=== PATIENT | male | born 1980 | race Caucasian/White ===

== ENCOUNTER 2020-08-07 13:53 | Emergency (ER) | payer MEDICAID, SELFPAY ==
[2020-08-07 13:58] VITALS: BP 145/92; PULSE 85; RESP 16; TEMP 37.2; O2SAT 98
--- NOTE | 2020-08-07 14:20 | ED.EXTPRO ---
HPI - Extremity Problem General Chief complaint: Extremity Problem,Nontraumatic Stated complaint: L SHOULDER PAIN Source: patient and RN notes reviewed Limitations: no limitations History of Present Illness HPI Narrative: The patient, is a left-handed sheltered workshop worker, presents with left shoulder pain. Patient states he has a couple day history of left shoulder pain that is mild to moderate, worse with motion, better at rest located in the anterior axilla. No neck pain, numbness, gait changes, significant weakness but he has definite decreased range of motion. He has had prior orthopedic/hand surgery for finger contracture, and ulnar nerve disposition on the same arm. Related Data Home Medications Medication Instructions Recorded Confirmed omeprazole 08/07/20 Allergies Allergy/AdvReac Type Severity Reaction Status Date / Time No Known Allergies Allergy Verified 10/22/12 14:19 Review of Systems Review of Systems: Narrative: The patient has been informed that they may have pre-hypertension or Hypertension based on a BP reading in the department. I recommend that the patient call the primary care provider listed on their discharge instructions or a physician of their choice this week to arrange follow up for further evaluation of possible pre-hypertension or Hypertension General/Constitutional: No weight loss,fever Eyes: N0: Redness,discharge Ears/Nose/Throat: No: Epistaxis,ear discharge Respiratory: Denies: Hemoptysis Gastrointestinal: No Vomiting, Bleeding-rectal Skin: No Lumps, eruption Neurologic: No Focal Weakness,Sz Hematologic: Denies: Petechiae/Purpura Psychiatric: No: Suicida ideationl All Other Systems: Reviewed and Negative PMFSH Comments At time of signature, agree with nursing past medical, surgical, social and family history. There is no relevant family history pertinent to the presenting complaint Exam Narrative: Exam Narrative: General Appearance: Well appearing, Well nourished, No distress EYE: PERRLA, EOMI, Conjunctiva clear Mouth/Throat: Normal appearing, Normal lips Neck: Supple Respiratory: Airway patent, No respiratory distress MS-shoulder: Normal strength (mostly intact, limited flexion/extension,IR/ER by pain), Tenderness prox. medial humerus, with mod decreased ROM), no swelling, Other-negative drop arm, positive Neer, Skin: Fair Jobst's test, surface warm, Dry, Normal color Neurological: A&O x3, Speech clear, CN II-XII intact Psychiatric: Normal mood, Normal affect Course Vital Signs Vital signs: Vital Signs Temperature 99.0 F 08/07/20 13:58 Pulse Rate 85 08/07/20 13:58 Respiratory Rate 16 08/07/20 13:58 Blood Pressure 145/92 H 08/07/20 13:58 Pulse Oximetry 98 08/07/20 13:58 Temperature 99.0 F 08/07/20 13:58 Pulse Rate 85 08/07/20 13:58 Respiratory Rate 16 08/07/20 13:58 Blood Pressure 145/92 H 08/07/20 13:58 Pulse Oximetry 98 08/07/20 13:58 Discharge Plan Discharge Clinical Impression: Tendonitis of shoulder, left, Osteoarthropathy Patient Disposition: Home, Self-Care Condition: Stable Instructions: Rotator Cuff Tendinitis (ED) Prescriptions: New prednisone 20 mg tablet 60 mg PO DAILY Qty: 15 RF: 0 acetaminophen-codeine 300-30 mg tablet 1 tablet PO HS PRN (Reason: pain) Qty: 10 RF: 0 tramadol 50 mg tablet 50 mg PO Q6H PRN (Reason: pain) Qty: 15 RF: 1 No Action omeprazole RF: 0 Follow-up/Referrals: PHYSICIAN,FILM TOUCH UP INSPECTOR [Primary Care Provider] -
== END 2020-08-07 14:32 | disposition home or self-care (01) ==
PROVIDERS: Emergency Provider Emergency Medicine
DX: M25.512 Pain in left shoulder (principal); M77.8 Other enthesopathies, not elsewhere classified; M19.012 Primary osteoarthritis, left shoulder
CPT/HCPCS: 99203; G0463

== ENCOUNTER 2021-10-06 15:22 | Emergency (ER) | payer OTHER, SELFPAY ==
--- NOTE | ~2021-10-06 | XR_ITS ---
EXAMINATION: XR chest 2V Exam Date/Time: 10/06/2021 16:10 CDT CLINICAL HISTORY: mid CHEST PRESSURE x 3 days; non smoker;hx of hiatal hernia Comparison: None available RESULT: Lines, tubes, and devices: None. Lungs and pleura: Clear. Cardiomediastinal silhouette: Normal cardiomediastinal silhouette. Other: No acute osseous or upper abdominal finding. IMPRESSION: No acute cardiopulmonary process. Reviewed, dictated and finalized at location [facility].
[2021-10-06 15:30] VITALS: BP 131/77; PULSE 73; RESP 12; TEMP 36.6; O2SAT 99
--- NOTE | 2021-10-06 16:07 | ECG_ITS ---
Measurements Intervals [place] Rate: 67 P: 37 NV: 172 QRS: -45 QRSD: 109 T: 26 QT: 378 QTc: 401 Interpretive Statements SINUS RHYTHM LEFT ANTERIOR FASCICULAR BLOCK [QRS AXIS <= -45, QR IN I, RS IN II] INFERIOR MYOCARDIAL INFARCTION [40+ ms Q WAVE AND/OR ST/T ABNORMALITY IN II/aVF], PROBABLY OLD ABNORMAL ECG NO PREVIOUS ECG AVAILABLE FOR COMPARISON Electronically Signed On 10-07-2021 13:55:13 CDT by Yahir Aleman M.D.
--- NOTE | 2021-10-06 16:09 | ED.GENADULT ---
HPI - General Adult General Chief complaint: Chest Pain Stated complaint: chest pressure Source: patient Mode of arrival: ambulatory Limitations: no limitations History of Present Illness HPI narrative: Patient presents for evaluation of chest pressure. He indicates that the night of last he experienced a pain shooting from his chest to his back. His significant other works for cardiology and he was able to get an appt with them on Thursday morning. He had an ECHO that was normal. He has CTA coronaries scheduled for tomorrow. He has a stress test planned for this coming week. He had a calcium CT in May 2021 with score of 1. He had intermittent pain Thursday through Thursday night. He states that pain was quite sharp. Today he has experienced a new type of pain that he describes as a pressure pushing out through the chest as opposed to the pain shooting into his back last week. He had periods of shortness of breath that he attributed to severity of the pain. He denies any cough or leg swelling. No underlying hx of HTN, hyperlipidemia or DM. He does not smoke. His father had CAD s/p stent placement. He has a hx of GERD and takes omeprazole 40mg PO BID. He also had a christina fundoplication back in 2017. He does drink two beer six days per week. He states his pain has been occurring 2-3 times per day. Certain movements including leaning forward and swallowing seem to make his symptoms worse. He has tried NSAIDs, tizanidine and tramadol which seemed to reduce the frequency with which he was experiencing pain. Related Data Home Medications Medication Instructions Recorded Confirmed atorvastatin 10 mg PO DAILY 10/06/21 10/06/21 losartan 25 mg PO DAILY 10/06/21 10/06/21 metoprolol succinate 100 mg PO DAILY 10/06/21 10/06/21 omeprazole 40 mg PO DAILY 10/06/21 10/06/21 sildenafil 100 mg PO PRN PRN 10/06/21 10/06/21 Allergies Allergy/AdvReac Type Severity Reaction Status Date / Time No Known Allergies Allergy Verified 10/06/21 15:33 Review of Systems Review of Systems: CONSTITUTIONAL: Denies fever, chills, or sweats. EYES: Denies visual changes, redness, or discharge. ENT: Denies rhinorrhea, congestion, sore throat, or otalgia. CARDIOVASCULAR: Reports chest pain. Denies palpitations, or edema. RESPIRATORY: Denies cough or dyspnea. GASTROINTESTINAL: Denies abdominal pain, nausea, vomiting, or diarrhea. GENITOURINARY: Denies dysuria or hematuria. SKIN: Denies rash or itching. MUSCULOSKELETAL: Denies back pain, joint pain, or myalgia. NEUROLOGIC: Denies headache, numbness, dizziness, or weakness. PSYCHIATRIC: Denies anxiety or depression. [facility] Past Medical History Medical History (Updated 10/06/21 @ 17:11 by SETH Arevalo, ELSA) Adhesive capsulitis of left shoulder Arthritis GERD (gastroesophageal reflux disease) Surgical History Surgical History History of abdominal surgery History of Christina fundoplication Status post repair of nerve per demo sheet pt stated nerve relocation Family History Family History Father Heart disease Other Adenocarcinoma Social History Social History Additional smoking assessment comments: former smoker 2 packs a day for 5 years Alcohol intake: current Drinks per week: 12 Alcohol use details: 2 beers per day Living arrangements: with family Additional occupation/education comments: self employed Gender identity (if verbalized by the patient): Male Sexual Orientation (if Verbalized by the Patient): Straight or Heterosexual Spiritual care concerns: No Exam Narrative: GENERAL: Well-appearing, well-nourished, and in no acute distress. HEAD: Normocephalic, atraumatic. EYES: PERRLA and EOMI. ENT: Nares clear, no rhinorrhea or epistaxis. Mucous membranes mois
--- NOTE | 2021-10-06 18:09 | PC.NURSE ---
1630 awaiting chest xray reports.
--- NOTE | 2021-10-06 18:09 | PC.NURSE ---
1700 CXR not read as yet, patient is sitting in chair with at side.
== END 2021-10-06 17:25 | disposition home or self-care (01) ==
PROVIDERS: Emergency Provider Nurse Practitioner; PCP Internal Medicine
DX: R07.89 Other chest pain (principal); K21.9 Gastro-esophageal reflux disease without esophagitis; M19.90 Unspecified osteoarthritis, unspecified site
CPT/HCPCS: 71046; 93005; 99213; G0463

== ENCOUNTER 2024-03-17 20:44 | Emergency (ER) | payer BC, SELFPAY ==
--- NOTE | ~2024-03-17 | CT_ITS ---
CT of the Abdomen and Pelvis: Indication: Abdominal pain Technique: 2.5 mm axial scans were obtained through the abdomen and pelvis following intravenous adm inistration of 100 cc of Omnipaque 350. Dose reduction technique was used on this scan by utilizing a utomated exposure control and iterative reconstruction technique. The dose-length product (DLP) was 8 82.86 mGy-cm. Findings: Scans through the lung bases are unremarkable. Small hiatal hernia noted. Small hepatic cysts noted. The spleen, pancreas, gallbladder, adrenals and kidneys are within normal limits. No evidence of aortic aneurysm. No lymphadenopathy. No bowel obstruction. Questionable nonspecific small bowel enteritis.. Images through the pelvis were performed. Questionable urinary bladder wall thickening versus underdi stention. No pelvic mass seen. No ascites. Impression: Questionable nonspecific small bowel enteritis. Questionable cystitis. Correlate with urinalysis. Small hiatal hernia. Reviewed, dictated and finalized at [facility]. Impression: Questionable nonspecific small bowel enteritis. Questionable cystitis. Correlate with urinalysis. Small hiatal hernia.
[2024-03-17 21:44] VITALS: BP 116/77; PULSE 82; RESP 18; TEMP 37.1; O2SAT 97
[2024-03-18 01:13] LABS: Add Urine Microscopic? NO; Appearance Urine Clear (Clear); Bilirubin Urine Negative (Negative); Blood Urine Negative (Negative); Color Urine Yellow (Yellow); Glucose Urine UA Negative (Negative); Ketones Urine Negative (Negative); Leukocyte Esterase Ur Negative LEU/UL (Negative); Nitrate Urine Negative (Negative); Protein Urine Negative (Negative)
--- NOTE | 2024-03-18 02:16 | ED.NAVMDI ---
HPI - Nausea/Vomiting/Diarrhea General Chief complaint: Nausea/Vomiting/Diarrhea Stated complaint: diarrhea, bodyache Time Seen by Provider: 03/18/24 00:50 Source: patient Mode of arrival: ambulatory Limitations: no limitations History of Present Illness HPI Narrative: Patient is a 44-year-old male who presents the ED with report of diarrhea. Patient reports he has had profuse diarrhea for the last 1 week. He states over the last couple of days, he has had up to 30 episodes of watery diarrhea per day. Denies rectal bleeding or melena. He does also report nausea, lightheadedness, muscle cramping, fatigue, diffuse abdominal cramping. Denies fevers, vomiting. He has history of recent fundoplication and states he rarely vomits. Denies any recent travel, recent antibiotics. Denies family members with similar symptoms. Related Data Home Medications Medication Instructions Recorded Confirmed atorvastatin 10 mg tablet 10 mg PO DAILY 10/06/21 10/06/21 losartan 25 mg tablet 25 mg PO DAILY 10/06/21 10/06/21 metoprolol succinate 100 mg 100 mg PO DAILY 10/06/21 10/06/21 tablet,extended release 24 hr omeprazole 40 mg capsule,delayed 40 mg PO DAILY 10/06/21 10/06/21 release sildenafil 100 mg tablet 100 mg PO PRN PRN Erectile 10/06/21 10/06/21 Dysfunction Allergies Allergy/AdvReac Type Severity Reaction Status Date / Time No Known Allergies Allergy Verified 03/17/24 21:53 Review of Systems Review of Systems: All systems reviewed & are unremarkable except as noted in HPI. All systems reviewed & are unremarkable except as noted in HPI and below PMFSH Past Medical History Medical History Adhesive capsulitis of left shoulder Arthritis GERD (gastroesophageal reflux disease) Surgical History Surgical History History of abdominal surgery History of Tricia fundoplication Status post repair of nerve per demo sheet pt stated nerve relocation Family History Family History Father Heart disease Other Adenocarcinoma Social History Social History Additional smoking assessment comments: former smoker 2 packs a day for 5 years Alcohol intake: current Drinks per week: 12 Alcohol use details: 2 beers per day Living arrangements: with family Additional occupation/education comments: self employed Gender identity (if verbalized by the patient): Male Sexual Orientation (if Verbalized by the Patient): Straight or Heterosexual Spiritual care concerns: No Exam Narrative: GENERAL: Well appearing, obese with BMI of 32.1, non-toxic, in no acute distress. HEAD: Normocephalic, atraumatic. RESPIRATORY: Airway patent, respirations nonlabored. Clear to auscultation bilaterally, no rales, rhonchi, wheezing. CARDIOVASCULAR: Regular rate and rhythm without murmurs, rubs, or gallops. ABDOMINAL: Soft, diffuse minimal tenderness throughout abdomen, nondistended. Normoactive BS. MUSCULOSKELETAL: Moves all extremities. No gross deformities. SKIN: Warm, dry, normal color. NEURO: A&O X3. Speech clear. Cranial nerves II-XII grossly intact. Steady gait. No ataxic movements. PSYCHIATRIC: Appropriate mood and affect. Normal interaction. Course Vital Signs Vital signs: Vital Signs Temperature 98.7 F 03/17/24 21:44 Pulse Rate 82 03/17/24 21:44 Respiratory Rate 18 03/17/24 21:44 Blood Pressure 116/77 03/17/24 21:44 Pulse Oximetry 97 03/17/24 21:44 Oxygen Delivery Room Air 03/17/24 21:44 Temperature 98 F 03/18/24 05:27 Pulse Rate 77 03/18/24 05:27 Respiratory Rate 18 03/18/24 05:27 Blood Pressure 127/64 03/18/24 05:27 Pulse Oximetry 99 03/18/24 05:27 Oxygen Delivery Room Air 03/17/24 21:44 MDM - Nausea/Vomiting/Diarrhea
[2024-03-18 02:45] LABS: Basophils Percent Auto 0.2 % (0.2-1.2); Eosinophils Absolute Auto 0.1 K/mm3 (0-0.3); Eosinophils Percent Auto 1.1 % (0-4.4); Hematocrit 37.8 % (42.0-52.0); Hemoglobin 12.7 g/dL (14.0-18.0); Immature Granulocyte Absolute 0.01 K/mm3 (0.00-0.031); Immature Granulocyte Percent A 0.2 % (0-0.5); Lymphocytes Absolute Auto 0.96 K/mm3 (0.9-3.2); Lymphocytes Percent Auto 20.4 % (18.3-44.2); Mean Corpuscular HGB Conc 33.6 g/dl (32-36); Mean Corpuscular Hemoglobin 30.8 pg (26-34); Mean Corpuscular Volume 91.5 fl (80-100); Mean Platelet Volume 9.5 fl (7.4-10.4); Monocytes Absolute Auto 0.6 K/mm3 (0.1-0.6); Monocytes Percent Auto 12.6 % (2.6-8.5); Neutrophils Absolute Auto 3.1 K/mm3 (1.3-6.7); Neutrophils Percent Auto 65.5 % (45.5-73.1); Platelet Count Result 227 k/mm3 (150-375); Red Blood Count 4.13 M/mm3 (4.6-6.20); Red Cell Distribution Width 12.7 % (11.5-14.5); White Blood Count 4.7 K/mm3 (4.5-10.0)
[2024-03-18 02:46] VITALS: BP 122/74; PULSE 67; RESP 18; TEMP 36.6; O2SAT 99
[2024-03-18 02:55] LABS: Alanine Aminotransferase 25 U/L (6-50); Albumin Level 4.4 g/dL (3.5-5.1); Alkaline Phosphatase 39 U/L (38-126); Anion Gap 10 mmol/L (4-12); Aspartate Amino Transferase 34 U/L (17-59); Bilirubin,Total 0.7 mg/dL (0.2-1.3); Blood Urea Nitrogen 13 mg/dL (9-20); Calcium 8.6 mg/dL (8.4-10.2); Carbon Dioxide 26 mmol/L (22-30); Chloride 99 mmol/L (98-107); Estimated CRCL calculation 94 ml/min; Estimated Glomerular Filt Rate > 60; Glucose 113 mg/dL (65-110); Lactic Acid Reflex 0.8 mmol/L (0.7-2.0); Lipase 62 U/L (23-300); Magnesium 1.9 mg/dL (1.6-2.3); Potassium 3.8 mmol/L (3.4-5.0); Sodium 135 mmol/L (137-145)
[2024-03-18] MEDS: SODIUM CHLORIDE 0.9% IV 1,000 ML 999 ML IV CONT ×2 (02:56→03:37)
[2024-03-18] MEDS: ONDANSETRON INJ 4 MG/2 ML VIAL IV PUSH (03:22)
[2024-03-18] MEDS: DICYCLOMINE HCL 10 MG CAPSULE 20 MG PO (05:23)
[2024-03-18] MEDS: AMOXICILLIN/CLAVULANATE K 875-125 MG TAB 1 TABLET PO (05:23)
[2024-03-18] MEDS: KETOROLAC 30 MG/ML VIAL (*BKC) IV PUSH (05:23)
[2024-03-18 05:27] VITALS: BP 127/64; PULSE 77; RESP 18; TEMP 36.6; O2SAT 99
== END 2024-03-18 05:28 | disposition home or self-care (01) ==
PROVIDERS: Emergency Provider Physician Assistant; PCP Internal Medicine
DX: K52.9 Noninfective gastroenteritis and colitis, unspecified (principal); K21.9 Gastro-esophageal reflux disease without esophagitis; M19.90 Unspecified osteoarthritis, unspecified site; Z87.891 Personal history of nicotine dependence; K44.9 Diaphragmatic hernia without obstruction or gangrene
CPT/HCPCS: 36415; 74177; 80053; 81003; 83605; 83690; 83735; 85025; 96361; 96374; 96375; 99284; A9270; J1885; J2405; J7030; Q9967